=== PATIENT | male | born 1960 | race Caucasian/White ===

== ENCOUNTER 2023-04-25 09:51 | Emergency (ER) | payer MEDICAID ==
[2023-04-25 10:44] LABS: BASOPHILS % (AUTO) 0.6 %; EOSINOPHILS # (AUTO) 0.1 10^3/uL (0.0-0.7); EOSINOPHILS % (AUTO) 1.7 %; HCT - HEMATOCRIT 41.7 % (42.0-52.0); HGB - HEMOGLOBIN 13.4 g/dL (14.0-18.0); LYMPHOCYTES # (AUTO) 1.3 10^3/uL (1.5-3.5); LYMPHOCYTES % (AUTO) 24.8 %; MEAN CORPUSCULAR HEMOGLOBIN 27.4 pg (27.0-31.0); MEAN CORPUSCULAR HGB CONC 32.1 g/dL (32.0-36.0); MEAN CORPUSCULAR VOLUME 85.3 fL (80.0-94.0); MEAN PLATELET VOLUME 9.9 fL (7.4-11.4); MONOCYTES # (AUTO) 0.6 10^3/uL (0.0-1.0); MONOCYTES % (AUTO) 10.4 %; NEUTROPHILS # (AUTO) 3.3 10^3/uL (1.5-6.6); NEUTROPHILS % (AUTO) 62.1 %; PLT - PLATELET COUNT 330 10^3/uL (130-450); RED BLOOD COUNT 4.89 10^6/uL (4.70-6.10); WHITE BLOOD COUNT 5.4 x10^3/uL (4.8-10.8)
--- NOTE | 2023-04-25 10:57 | XRAY Report ---
PROCEDURE: Chest 1 View X-Ray INDICATIONS: SOA TECHNIQUE: One view of the chest was acquired. COMPARISON: None. FINDINGS: Surgical changes and devices: None. Lungs and pleura: No pleural effusions or pneumothorax. Lungs are clear. Mediastinum: Mediastinal contours appear normal. Heart size is normal. Bones and chest wall: No suspicious bony lesions. Overlying soft tissues appear unremarkable. IMPRESSION: No acute cardiopulmonary process. Reviewed by: Feng Fang MD on 04/25/2023 10:56 AM PDT Approved by: Feng Fang MD on 04/25/2023 10:56 AM PDT Station ID: [id number]
[2023-04-25 11:00] LABS: ALBUMIN 4.3 g/dL (3.2-5.5); ALBUMIN/GLOBULIN RATIO 1.6 (1.0-2.2); BILIRUBIN,TOTAL 0.7 mg/dL (0.2-1.0); CALCIUM 9.9 mg/dL (8.5-10.3); POTASSIUM 3.9 mmol/L (3.5-4.5)
[2023-04-25] MEDS ORDERED: SODIUM CHLORIDE 0.9% 1,000 ML IV STA (11:02)
--- NOTE | 2023-04-25 12:30 | ED Physician Documentation ---
History of Present Illness - Stated complaint Stated Complaint: DIZZY,NUMB - Chief complaint Chief Complaint: Neuro - History obtained from History obtained from: Patient - Additonal information Additional information: Patient is a 62-year-old male with a history of high blood pressure and hyperlipidemia presenting for evaluation of feeling lightheaded this morning several times. Patient states he was working hard [employer] and had not had much to drink this morning except a cup of coffee. He is also not had much to drink in the past few days. He states that while working and standing up he w ould feel lightheaded as if he was going to faint. He reports at one time he felt ringing in his ears and numbness in his body. He denies that his symptoms felt like vertigo or unsteadiness but describes them as feeling more faint and lightheaded. No trouble with his vision. No chest pain, headache, difficulty breathing, abdominal pain, nausea. No extremity weakness. Patient reports having similar episode in November where he was evaluated at [facility]. Review of Systems Constitutional: denies: Fever Cardiac: denies: Chest pain / pressure Respiratory: denies: Dyspnea GI: denies: Abdominal Pain Neurologic: denies: Headache PD PAST MEDICAL HISTORY - Past Medical History Past Medical History: Yes Cardiovascular: Hypertension, High cholesterol Respiratory: None Neuro: None Endocrine/Autoimmune: None GI: None : None HEENT: None Psych: None Musculoskeletal: None Derm: None - Past Surgical History Past Surgical History: No - Present Medications Home Medications: Ambulatory Orders Medication Instructions Recorded Confirmed Lisinopril [Zestril] 20 mg PO DAILY 04/25/23 04/25/23 - Allergies Allergies/Adverse Reactions: Allergies Allergy/AdvReac Type Severity Reaction Status Date / Time No Known Drug Allergies Allergy Verified 04/25/23 09:59 - Social History Does the pt smoke?: No Smoking Status: Never smoker Does the pt drink ETOH?: No Does the pt have substance abuse?: No - Immunizations Immunizations are current?: Yes PD ED PE NORMAL - General General: Alert and oriented X 3, No acute distress, Well developed/nourished - HEENT HEENT: Atraumatic, Moist mucous membranes, Pharynx benign - Neck Neck: Supple, no meningeal sign - Cardiac Cardiac: RRR, No murmur - Respiratory Respiratory: No respiratory distress, Clear bilaterally - Abdomen Abdomen: Soft, Non tender, Non distended - Derm Derm: Warm and dry - Extremities Extremities: No edema - Neuro Neuro: Alert and oriented X 3, 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, No motor deficit, No sensory deficit, Normal speech, Other (Normal unassisted gait) Results - Vitals Vitals: Vital Signs - 24 hr 04/25/23 04/25/23 04/25/23 10:00 10:51 11:21 Temperature 36.7 C Heart Rate 65 59 L Heart Rate [ 68 Sitting] Heart Rate [ 70 Standing] Heart Rate [ 54 L Supine] Respiratory 16 17 Rate Blood Pressure 148/94 H 134/75 H Blood Pressure 151/84 H [Sitting] Blood Pressure 155/94 H [Standing] Blood Pressure 152/70 H [Supine] O2 Saturation 96 97 04/25/23 12:39 Temperature Heart Rate 54 L Heart Rate [ Sitting] Heart Rate [ Standing] Heart Rate [ Supine] Respiratory 15 Rate Blood Pressure 162/83 H Blood Pressure [Sitting] Blood Pressure [Standing] Blood Pressure [Supine] O2 Saturation 100 Oxygen O2 Source Room air - EKG (time done) 1010 EKG releavant findings:: EKG personally interpreted by author of this note. Relevant findings are: Rate 64, normal sinus rhythm, no STEMI, no ST depressions Rate: Rate (enter#) (64) Rhythm: NSR Intervals: No: Prolonged QT Ischemia: No: ST elevation c/w ischemia Compare to prior EKG: Old EKG unavailable - Labs Labs: Laboratory Tests 04/25/23 04/25/23 04/25/23 10:33 10:37 10:37 WBC 5.4 RBC 4.89 Hgb 13.4 L Hct 41.7 L MCV 85.3 MCH 27.4 MCHC 32.1 RDW 14.0 Plt Count 330 MPV 9.9 Neut # (Auto) 3.3 Lymph # (Auto) 1.3 L Spencer # (Auto) 0.6 Eos # (Auto) 0.1 Baso # (Auto) 0.0 Absolute Nucleated RBC 0.00 Nucleated RBC % 0.0 Sodium 139 Potassium 3.9 Chloride 105 Carbon Dioxide 28 Anion Gap 6.0 BUN 17 Creatinine 1.0 Estimated GFR (MDRD) 75 L Glucose 109 H POC Whole Bld Glucose 116 H Calcium 9.9 Total Bilirubin 0.7 AST 26 ALT 28 Alkaline Phosphatase 57 Total Protein 7.0 Albumin 4.3 Globulin 2.7 Albumin/Globulin Ratio 1.6 PD Medical Decision Making - ED course Complexity details: reviewed results, re-evaluated patient, d/w patient ED course: Pt with episodic lightheadedness and feeling faint this morning. VSS including negative orthostatics. EKG is NSR. CBC and Chemistries reviewed without significant findings. Pt without any symptoms here, ambulating without issue. No vertiginous symptoms or other findings to suggest CVA. No CP to suggest ACS. No event on monitor while in ED. Doing well after IV fluids. States he has not had as much to drink in last day despite working hard. Encouraged continued hydration and close PCP follow up. Aware of concerning symptoms to return for. Departure - Departure Disposition: 01 Home, Self Care Clinical Impression: Episodic lightheadedness Condition: Stable Instructions: ED Near Syncope Unkn Comments: Your testing today is not revealing a cause for your episodes of lightheadedness this morning. I would recommend close follow-up with your primary care provider. You may need referral to a behavioral interventionist or wear a heart monitor to make sure that you are not having any irregular rhythms during these episodes. In the meanwhile would continue to make sure you stay hydrated and take it easy. Return to the emergency department if you develop any worsening symptoms. Forms: PCP List Discharge Date/Time: 04/25/23 12:44
[2023-04-26 10:56] VITALS: BP 162/83; O2SAT 100
== END 2023-04-25 12:44 | disposition home or self-care (01) ==
LOC: ED 09:51
DX: R42 Dizziness and giddiness (principal); I10 Essential (primary) hypertension; E78.00 Pure hypercholesterolemia, unspecified; Z79.899 Other long term (current) drug therapy
CPT/HCPCS: 36415; 80053; 85025; 93005; 99283; 99284